=== PATIENT | female | born 1995 | race Caucasian/White ===

== ENCOUNTER 2018-02-07 20:22 | Emergency (ER) | payer OTHER, MEDICAID ==
[~2018-02-07] VITALS: Ht 175.3 cm; Wt 105.7 kg
[2018-02-07 20:39] VITALS: BP 120/88
[2018-02-07] MEDS ORDERED: WELLBUTRIN (20:39)
== END 2018-02-07 20:56 | disposition home or self-care (01) ==
LOC: M.ERS 20:22
DX: Z04.41 Encounter for examination and observation following alleged adult rape (principal); T74.21XA Adult sexual abuse, confirmed, initial encounter; F32.9 Major depressive disorder, single episode, unspecified; Z88.0 Allergy status to penicillin; Y07.01 Husband, perpetrator of maltreatment and neglect